=== PATIENT | female | born 1960 ===

== ENCOUNTER 2024-04-08 12:49 | Emergency (ER) | payer OTHER ==
[~2024-04-08] VITALS: Ht 165.1 cm; Wt 47.2 kg
[~2024-04-08 12:49] MED LIST: LEVOTHYROXINE25 MCG PO
[2024-04-08] MEDS ORDERED: FAMOtidine 10 MG/ML (4ML VIAL) IV ONE (13:00)
[2024-04-08] MEDS ORDERED: 0.9 % SODIUM CHLORIDE 1,000 ML IV ONE (13:00)
[2024-04-08] MEDS ORDERED: METFORMIN HCL1000 M2 PO (13:06)
[2024-04-08] MEDS ORDERED: TOPROL XL25 M1 (13:06)
[2024-04-08] MEDS ORDERED: INSULIN REGULAR, HUMAN 1,000 UNIT/10 ML UNITS SUBCUTANEO ONE ×2 (13:15→15:30)
[2024-04-08 13:38] LABS: HEMATOCRIT 43.6 % (36.0-45.00); HEMOGLOBIN 14.6 g/dL (12.0-15.00); MEAN CELL VOLUME 93.6 fL (80.00-100.00); MEAN CORPUSCULAR HEMOGLOBIN 31.3 pg (27.00-32.0); MEAN CORPUSCULAR HGB CONC 33.5 g/dl (32.0-36.0); PLATELET COUNT 509 K/uL (150-450); RED BLOOD COUNT 4.66 M/uL (4.00-6.00); RED CELL DISTRIBUTION WIDTH 13.8 % (11.5-14.5)
[2024-04-08 13:58] LABS: ABG PH 7.301 (7.35-7.45); ABG PO2 108.3 mmHg (80-100); ABG pCO2 23.1 mmHg (35-45); BASE EXCESS -13.1 mmol/l; BICARBONATE 11.1 mmol/l (23-25); SaO2 97.2 %; Tco2 11.9 mmol/l
[2024-04-08 14:00] LABS: allen test SATISFACTORY; puncture site RADIAL RIGHT
[2024-04-08 14:01] LABS: o2 21 %
[2024-04-08 14:12] LABS: BILIRUBIN TOTAL 0.55 mg/dL (0.3-1.2); CALCIUM 9.4 mg/dL (8.5-10.1); CREATININE SERUM 0.7 mg/dL (0.55-1.02); GFR 85.07; GLOBULINA 3.6 G/DL (2.4-3.5); POTASSIUM 3.21 mEq/L (3.5-5.1); TOTAL PROTEIN 7.6 gm/dL (6.4-8.2)
[2024-04-08 14:54] LABS: PH,URINE 5.5 (5.0-8.0); URINE APPEARANCE Clear; URINE BILIRRUBIN Negative (NEGATIVE); URINE BLOOD Negative; URINE COLOR Yellow; URINE LEUKOCYTE Negative; URINE NITRATE Negative; URINE PROTEIN 30 (NEGATIVE); URINE UROBILINOGEN 0.2 E.U./dl
[2024-04-08 14:57] LABS: URINE BACTERIA 958.7 uL (0.0-1933); URINE EPITHELIAL CELLS 18.3 uL (0.0-38.8); URINE WBC 49.2 uL (0.0-23.2)
[2024-04-08 14:59] LABS: URINE CAST 1.37 uL (0.0-1.40); URINE GLUCOSE >=1000 MG/DL (NEGATIVE); URINE KETONE >=160 (NEGATIVE); URINE RBC 1.3 uL (0.0-20.8)
== END 2024-04-08 15:44 | disposition home or self-care (01) ==
LOC: ER 12:49
PROVIDERS: General Practice
DX: R73.9 Hyperglycemia, unspecified (principal); I10 Essential (primary) hypertension

== ENCOUNTER 2024-05-01 18:54 | Emergency (ER) | payer OTHER ==
[~2024-05-01] VITALS: Ht 165.1 cm; Wt 47.6 kg
[~2024-05-01 18:54] MED LIST changes: +METFORMIN HCL1000 M2 PO; +TOPROL XL25 M1
[2024-05-01] MEDS ORDERED: 0.9 % SODIUM CHLORIDE 500 ML IV ONE (19:45)
[2024-05-01 20:28] LABS: HEMOGLOBIN 13.1 g/dL (12.0-15.00); MEAN CELL VOLUME 94.6 fL (80.00-100.00); MEAN CORPUSCULAR HEMOGLOBIN 31.7 pg (27.00-32.0); MEAN CORPUSCULAR HGB CONC 33.5 g/dl (32.0-36.0); PLATELET COUNT 555 K/uL (150-450); RED BLOOD COUNT 4.12 M/uL (4.00-6.00); RED CELL DISTRIBUTION WIDTH 15.5 % (11.5-14.5)
[2024-05-01 20:54] LABS: ALBUMIN 3.7 gm/dL (3.4-5.0); BILIRUBIN TOTAL 0.48 mg/dL (0.3-1.2); CALCIUM 8.9 mg/dL (8.5-10.1); CREATININE SERUM 0.51 mg/dL (0.55-1.02); GFR 123.43; GLOBULINA 3.2 G/DL (2.4-3.5); POTASSIUM 3.64 mEq/L (3.5-5.1); TOTAL PROTEIN 6.9 gm/dL (6.4-8.2)
[2024-05-01 21:20] LABS: URINE APPEARANCE Clear; URINE BILIRRUBIN Negative (NEGATIVE); URINE BLOOD Negative; URINE COLOR Yellow; URINE LEUKOCYTE Negative; URINE NITRATE Negative; URINE PROTEIN 30 (NEGATIVE)
[2024-05-01 21:23] LABS: URINE BACTERIA 139.4 uL (0.0-1933); URINE EPITHELIAL CELLS 13.7 uL (0.0-38.8); URINE RBC 2.5 uL (0.0-20.8); URINE WBC 13.7 uL (0.0-23.2)
[2024-05-01 21:57] LABS: URINE GLUCOSE >=1000 MG/DL (NEGATIVE); URINE KETONE >=160 (NEGATIVE)
[2024-05-01] MEDS ORDERED: VOLTAREN ARTHRI20 GM TOP (22:10)
[2024-05-01] MEDS ORDERED: KETOROLAC TROMETHAMINE 30 MG VIAL IV ONE (22:15)
== END 2024-05-01 22:34 ==
LOC: ER 18:54
PROVIDERS: General Practice
DX: R30.0 Dysuria (principal); R10.9 Unspecified abdominal pain; I10 Essential (primary) hypertension; E11.9 Type 2 diabetes mellitus without complications; Z79.84 Long term (current) use of oral hypoglycemic drugs